=== PATIENT | female | born 1985 | race Caucasian/White ===

== ENCOUNTER 2016-04-28 02:54 | Inpatient (IN) | payer MEDICAID ==
[~2016-04-28] VITALS: Ht 160 cm; Wt 73.2 kg
[2016-04-28] VITALS (28 sets, daily range): BP systolic 97–122; BP diastolic 53–72; PULSE 75–118; TEMP 97.9–98.2
[~2016-04-28 02:54] MED LIST: PRENATAL VITAMI1 TA5 PO
[2016-04-28] MEDS ORDERED: IRON325 MG PO (03:12)
[2016-04-28 04:40] LABS: BASO % 0.3 % (0.0-2.0); EOS # 0.1 (0.0-0.7); EOS % 0.5 % (0-4.0); GRAN # 8.3 (1.4-6.5); GRAN % 72.4 % (42.2-75.2); HEMOGLOBIN 12.1 g/dl (12.5-16.0); LYMPH # 2.4 (1.2-3.4); LYMPH % 20.5 % (20.0-51.0); MEAN CELL VOLUME 86 fl (80.0-100.0); MEAN CORPUSCULAR HEMOGLOBIN 29 pg (27.0-31.0); MEAN CORPUSCULAR HGB CONC 34 g/dl (33.0-37.0); MEAN PLATELET VOLUME 11.1 fl (7.4-10.4); MONO # 0.7 (0.1-0.6); MONO % 5.7 % (1.7-9.3); PLATELET COUNT 193 K/mm3 (130-400); REDCELL DISTRIBUTION WIDTH-CV 14.7 % (11.5-14.5); WHITE BLOOD COUNT 11.5 K/mm3 (4.8-10.8)
[2016-04-28 04:45] LABS: HEMATOCRIT 35.9 % (37.0-47.0)
[2016-04-29 03:00] VITALS: BP 105/58; PULSE 74; TEMP 97.8
[2016-04-29 07:29] VITALS: BP 108/61; PULSE 72; TEMP 98.5
[2016-04-29] MEDS ORDERED: IBU800 M1 PO (08:31)
[2016-04-29 15:40] VITALS: BP 111/60; PULSE 96; TEMP 98.2
== END 2016-04-29 17:30 | disposition home or self-care (01) | DRG 774 ==
LOC: LDRO 02:54 → LDR 04:15 → OB 04:15
PROVIDERS: Obstetrics & Gynecology
PROC: 10E0XZZ Delivery of Products of Conception, External Approach (ICD-10-PCS; principal; 2016-04-28)
DX: O48.0 Post-term pregnancy (principal); O98.312 Other infections with a predominantly sexual mode of transmission complicating pregnancy, second trimester; A56.02 Chlamydial vulvovaginitis; D64.9 Anemia, unspecified; O99.013 Anemia complicating pregnancy, third trimester; Z3A.41 41 weeks gestation of pregnancy; Z37.0 Single live birth
CPT/HCPCS: J2590; J7120

== ENCOUNTER 2017-06-01 10:09 | Inpatient (IN) | payer MEDICAID ==
[~2017-06-01] VITALS: Ht 160 cm; Wt 66.8 kg
[2017-06-01] VITALS (13 sets, daily range): BP systolic 98–119; BP diastolic 55–73; PULSE 74–100; TEMP 97.9–98.9
[~2017-06-01 10:09] MED LIST changes: +IBU800 M1 PO; +IRON325 MG PO
[2017-06-01 10:55] LABS: BASO % 0.3 % (0.0-2.0); EOS % 0.3 % (0-4.0); GRAN # 9.2 (1.4-6.5); GRAN % 78.8 % (42.2-75.2); HEMATOCRIT 39.1 % (37.0-47.0); HEMOGLOBIN 12.9 g/dl (12.5-16.0); LYMPH # 1.7 (1.2-3.4); LYMPH % 14.7 % (20.0-51.0); MEAN CELL VOLUME 90 fl (80.0-100.0); MEAN CORPUSCULAR HEMOGLOBIN 30 pg (27.0-31.0); MEAN CORPUSCULAR HGB CONC 33 g/dl (33.0-37.0); MEAN PLATELET VOLUME 11.4 fl (7.4-10.4); MONO # 0.6 (0.1-0.6); MONO % 5.2 % (1.7-9.3); PLATELET COUNT 169 K/mm3 (130-400); RED BLOOD COUNT 4.34 M/mm3 (4.10-5.30); REDCELL DISTRIBUTION WIDTH-CV 14.3 % (11.5-14.5)
[2017-06-02 01:00] VITALS: BP 100/68; PULSE 78; TEMP 98.1
[2017-06-02 10:00] VITALS: BP 116/66; PULSE 78; TEMP 98.1
[2017-06-02 14:07] VITALS: BP 95/52; PULSE 60; TEMP 98.1
[2017-06-02 20:00] VITALS: BP 104/65; PULSE 80; TEMP 97.3
[2017-06-03 07:21] VITALS: BP 99/71; PULSE 77
[2017-06-03] MEDS ORDERED: IBU800 M1 PO (07:57)
== END 2017-06-03 12:20 | disposition home or self-care (01) | DRG 775 ==
LOC: OB 10:09 → LDR 10:13 → OB 10:13
PROVIDERS: Obstetrics & Gynecology
PROC: 10E0XZZ Delivery of Products of Conception, External Approach (ICD-10-PCS; principal; 2017-06-01)
DX: O48.0 Post-term pregnancy (principal); O99.824 Streptococcus B carrier state complicating childbirth; O69.81X0 Labor and delivery complicated by cord around neck, without compression, not applicable or unspecified; Z3A.41 41 weeks gestation of pregnancy; Z37.0 Single live birth
CPT/HCPCS: J2540; J2590; J7120

== ENCOUNTER 2019-02-24 06:35 | Observation (INO) | payer MEDICAID ==
[~2019-02-24] VITALS: Ht 160 cm; Wt 72.7 kg
[2019-02-24 07:48] LABS: COLLECTION METHOD CLEAN CATCH
[2019-02-24 07:56] LABS: BASO % 0.3 % (0.0-2.0); EOS % 0.2 % (0-4.0); GRAN # 11.7 (1.4-6.5); HEMOGLOBIN 11.2 g/dl (12.5-16.0); LYMPH # 1.2 (1.2-3.4); LYMPH % 8.4 % (20.0-51.0); MEAN CELL VOLUME 94 fl (80.0-100.0); MEAN CORPUSCULAR HEMOGLOBIN 30 pg (27.0-31.0); MEAN CORPUSCULAR HGB CONC 32 g/dl (33.0-37.0); MONO # 0.9 (0.1-0.6); MONO % 6.2 % (1.7-9.3); PLATELET COUNT 216 K/mm3 (130-400); RED BLOOD COUNT 3.72 M/mm3 (4.10-5.30); REDCELL DISTRIBUTION WIDTH-CV 13.3 % (11.5-14.5)
[2019-02-24 07:57] LABS: HEMATOCRIT 34.8 % (37.0-47.0)
[2019-02-24 08:01] LABS: MUCOUS Present /lpf; PH 6 (5-8); SQUAMOUS EPITHELIAL 0-2 /hpf; URINE APPEARANCE Clear; URINE BACTERIA Rare /hpf; URINE BILIRUBIN Negative (NEGATIVE); URINE BLOOD 2+ (NEGATIVE); URINE COLOR Yellow; URINE GLUCOSE Negative (NEGATIVE); URINE KETONE 2+ (NEGATIVE); URINE LEUKOCYTE ESTERASE Negative (NEGATIVE); URINE NITRATE Negative (NEGATIVE); URINE PROTEIN(semi-quant) Negative (NEGATIVE); URINE RBC >50 /hpf; URINE UROBILINOGEN Negative (NEGATIVE)
[2019-02-24 08:06] LABS: ALANINE AMINOTRANSFERASE < 6 U/L (9-52); ALBUMIN 4.1 gm/dL (3.5-5.0); ALKALINE PHOSPHATASE 80 U/L (50-136); ANION GAP 9 mmol/L (7-16); AST,SGOT 14 U/L (15-37); BILIRUBIN,TOTAL 0.4 mg/dL (0.0-1.0); BLOOD UREA NITROGEN 11 mg/dL (7-17); CALCIUM 8.9 mg/dL (8.4-10.2); CARBON DIOXIDE 22 mmol/L (22-30); CHLORIDE 103 mmol/L (98-107); CREATININE, serum 0.83 (0.52-1.25); GLUCOSE 93 mg/dL (74-106); LIPASE 34 U/L (23-300); POTASSIUM 4.1 mmol/L (3.4-5.0); SODIUM 133 mmol/L (137-145); TOTAL PROTEIN 7.8 gm/dL (6.4-8.2)
[2019-02-24 08:17] LABS: C-REACTIVE PROTEIN 15.8 mg/dL (0.0-0.9)
--- NOTE | 2019-02-24 08:25 | NUR ---
This RN to ER for FHR strip on patient. Patient in ER for back pain. G6L5, 30.6wks. Denies or medical complications. Denies tightening/cramping/contractions, vaginal bleeding, or leaking of fluid. Reports good movements. NST obtained. FHR reactive for gestational age. Audible movement. No uterine activity noted per palpation or toco.
--- NOTE | 2019-02-24 08:45 | NUR ---
Plan of care discussed with patient regarding performing SVE per 's order. Patient verbalized understanding. SVE closed/thick/high.
[2019-02-24 09:33] LABS: TRICYCLIC ANTIDEPRESS URINE NEGATIVE
[2019-02-24 11:30] VITALS: BP 106/71; PULSE 102; TEMP 97.5
--- NOTE | 2019-02-24 11:30 | NUR ---
Report from Abhijeet RN to assume care of patient at this time. Patient into Room 222 via wheelchair. Oriented to room and plan of care. Patient reports pain at 10/10, requesting pain medication. Will call for further orders.
[2019-02-24 15:15] VITALS: BP 104/62; PULSE 102; TEMP 98.3
[2019-02-24 19:15] VITALS: BP 104/58; PULSE 102; TEMP 98.7
[2019-02-24 23:55] VITALS: BP 100/62; PULSE 94; TEMP 98.6
[2019-02-25 04:15] VITALS: BP 104/58; PULSE 93
[2019-02-25 07:15] VITALS: BP 108/71; PULSE 100; TEMP 98.1
[2019-02-25] MEDS ORDERED: STOOL SOFTENER100 M2 PO (07:39)
[2019-02-25] MEDS ORDERED: PERCOCET 325 MG1 TA2 PO (07:39)
--- NOTE | 2019-02-25 10:12 | NUR ---
Initial visit; Patient thanked Audio Visual Project Manager for looking in on her and offering God's blessings.
[2019-02-25 11:15] VITALS: BP 112/62; PULSE 98; TEMP 98.2
== END 2019-02-25 14:05 | disposition home or self-care (01) ==
LOC: COL.ER 06:35 → OB 09:47
PROVIDERS: Family Medicine; ADMIT Obstetrics & Gynecology
DX: O99.89 Other specified diseases and conditions complicating pregnancy, childbirth and the puerperium (principal); N13.30 Unspecified hydronephrosis; Z3A.31 31 weeks gestation of pregnancy; R31.29 Other microscopic hematuria
CPT/HCPCS: G0378; J2270; J7030; J7120

== ENCOUNTER 2019-05-07 18:54 | Inpatient (IN) | payer MEDICAID ==
[~2019-05-07] VITALS: Ht 160 cm; Wt 74.5 kg
[~2019-05-07 18:54] MED LIST changes: +PERCOCET 325 MG1 TA2 PO; +STOOL SOFTENER100 M2 PO
[2019-05-07 18:57] VITALS: BP 108/58; PULSE 88; TEMP 998.4
[2019-05-07 19:30] VITALS: BP 108/58; PULSE 88; TEMP 98.4
[2019-05-07] MEDS ORDERED: PRENATAL 191 TAB PO (20:38)
[2019-05-07 22:57] VITALS: BP 108/58; PULSE 88
[2019-05-07 23:30] VITALS: BP 116/68; PULSE 74; TEMP 98.3
[2019-05-07 23:34] LABS: BASO % 0.3 % (0.0-2.0); EOS # 0.1 (0.0-0.7); EOS % 0.7 % (0-4.0); GRAN # 7.5 (1.4-6.5); GRAN % 70.6 % (42.2-75.2); HEMATOCRIT 36.4 % (37.0-47.0); HEMOGLOBIN 11.7 g/dl (12.5-16.0); LYMPH # 2.2 (1.2-3.4); LYMPH % 21.2 % (20.0-51.0); MEAN CELL VOLUME 90 fl (80.0-100.0); MEAN CORPUSCULAR HEMOGLOBIN 29 pg (27.0-31.0); MEAN CORPUSCULAR HGB CONC 32 g/dl (33.0-37.0); MEAN PLATELET VOLUME 11.7 fl (7.4-10.4); MONO # 0.7 (0.1-0.6); MONO % 6.4 % (1.7-9.3); PLATELET COUNT 232 K/mm3 (130-400); RED BLOOD COUNT 4.03 M/mm3 (4.10-5.30); REDCELL DISTRIBUTION WIDTH-CV 13.8 % (11.5-14.5)
[2019-05-08] VITALS (17 sets, daily range): BP systolic 101–124; BP diastolic 53–71; PULSE 64–100; TEMP 97.4–98.6
--- NOTE | 2019-05-08 06:20 | NUR ---
Report from Rachid Curtis RN and care of patient recieved. Patient requesting to be taken off EFM for ambulating, category 1 FHR tracing noted. Patient encouraged to notify RN with increased pain or pressure.
--- NOTE | 2019-05-08 06:47 | NUR ---
0647- Patient back on EFM for monitoring prior to SVE and physician update. Patient reports increased pressure. 0652- SVE by this RN /+1 with BBOWI. Patient repositioned WL and encouraged to notify RN with increased pressure. 0654- Dr. Martinez notified of recent SVE, patient history, and requested at bedside for delivery. Physician in transit. RN remains at bedside. Nursery RN notified. Patient breathing through contractions well.
--- NOTE | 2019-05-08 07:16 | NUR ---
0716- Dr. Martinez at bedside for impending delivery. 0717- Patient requests AROM. AROM by Dr. Martinez for moderate amount of clear fluid, SVE 10/+2. Patient assisted to footplates and encouraged to push when patient feels the urge. 0720- Patient begins pushing with contractions with physician at bedside. 0728- of viable female infant attended by Dr. Martinez. to mother's abdomen, care of infant to Abhinav Aceves RN. Apgars 8/9/9. 0732- Spont. delivery of placenta. Pitocin bolus started at 333 ml/hr/protocol. Perineum intact. Pericare given and ice pack applied. Patient updated on plan of care and safety. Denies need.
[2019-05-09 07:55] VITALS: BP 104/68; PULSE 72; TEMP 97.8
[2019-05-09] MEDS ORDERED: PERCOCET 325 MG1 TA2 PO (08:18)
[2019-05-09] MEDS ORDERED: MOTRIN 600600 MG/TAB PO (08:18)
--- NOTE | 2019-05-09 10:11 | NUR ---
Initial visit; Patient thanked Machine Fixer for offering congratulations and God's blessings for the of her daughter. Machine Fixer thanked mom for choosing [facility].
== END 2019-05-09 15:27 | disposition home or self-care (01) | DRG 807 ==
LOC: LDRO 18:54 → LDR 22:30 → OB 22:30
PROVIDERS: ADMIT Obstetrics & Gynecology
PROC: 10E0XZZ Delivery of Products of Conception, External Approach (ICD-10-PCS; principal; 2019-05-07)
PROC: 10907ZC Drainage of Amniotic Fluid, Therapeutic from Products of Conception, Via Natural or Artificial Opening (ICD-10-PCS; 2019-05-07)
DX: O48.0 Post-term pregnancy (principal); Z37.0 Single live birth; O99.824 Streptococcus B carrier state complicating childbirth; Z3A.41 41 weeks gestation of pregnancy; Z23 Encounter for immunization
CPT/HCPCS: J2540; J2590; J7120

== ENCOUNTER 2022-01-08 09:32 | Inpatient (IN) | payer MEDICAID ==
[~2022-01-08] VITALS: Ht 160 cm; Wt 78.5 kg
[2022-01-08] VITALS (31 sets, daily range): BP systolic 91–134; BP diastolic 50–75; PULSE 58–92; TEMP 97.9–98.6
[~2022-01-08 09:32] MED LIST changes: +MOTRIN 600600 MG/TAB PO; +PRENATAL 191 TAB PO
--- NOTE | 2022-01-08 09:40 | NUR ---
0954 PT AMBULATORY TO UNIT WITH SUPPORT PERSON. PT SENT OVER FROM OFFICE. INFORMED PT ON PLAN OF CARE AND EXPLAINED INDUCTION PROCESS. PT AGREEABLE. PT REPORTS POSITIVE MOVEMENT, CTX EVERY 8-9 MINUTES BUT BARELY FEELS THEM, NO LEAKING OF FLUID. PT COMOFORTABLE AT THIS TIME.
[2022-01-08 10:19] LABS: BASO % 0.2 % (0.0-2.0); EOS # 0.1 K/mm3 (0.0-0.7); EOS % 1.1 % (0.0-4.0); GRAN # 6.1 K/mm3 (1.4-6.5); GRAN % 67.7 % (42.2-75.2); HEMOGLOBIN 11.7 g/dl (12.5-16.0); LYMPH # 2.1 K/mm3 (1.2-3.4); LYMPH % 23.7 % (20.0-51.0); MEAN CELL VOLUME 85 fl (80.0-100.0); MEAN CORPUSCULAR HEMOGLOBIN 28 pg (27-31); MEAN CORPUSCULAR HGB CONC 33 g/dl (33.0-37.0); MEAN PLATELET VOLUME 11.4 fl (7.4-10.4); MONO # 0.6 K/mm3 (0.1-0.6); MONO % 6.7 % (1.7-9.3); PLATELET COUNT 207 K/mm3 (130-400); RED BLOOD COUNT 4.16 M/mm3 (4.10-5.30); REDCELL DISTRIBUTION WIDTH-CV 14.7 % (11.5-14.5)
[2022-01-08 10:20] LABS: HEMATOCRIT 35.5 % (37.0-47.0)
--- NOTE | 2022-01-08 12:30 | NUR ---
1230 DR. HOWELL AT BEDSIDE FOR SVE AND AROM. SVE /-3, AROM COMPLETE AT THIS TIME. LARGE AMOUNT OF CLEAR FLUID NOTED. EFM TRACING CAT 1. WILL CONTINUE TO MONITOR.
--- NOTE | 2022-01-08 16:00 | NUR ---
1600 PT CALLED OUT FEELING INCREASED PRESSURE. THIS RN AT BEDSIDE FOR SVE 9/100/-2. ALVARO MARSHALL, AND DR. HOWELL NOTIFIED AT THIS TIME. ROOM SET UP FOR DELIVERY. 1604 PT SVE COMPLETE/-[address] HOWELL NOTIFIED. 1606 DR. HOWELL ON UNIT FOR DELIVERY. BEGAN PUSHING WITH PT. GOOD MATERNAL EFFORT. EFM TRACING CAT 1. 16[address] PER DR. HOWELL OVER INTACT PERINEUM. PT REQUESTED DELAYED CORD CLAMPING. BABY PLACED ON ABDOMEN AND CARE ASSUMED BY ALVARO MARSHALL. [address] HOWELL. BLEEDING WNL, FUNDUS FIRM AT THIS TIME. NO REPAIRS PERFORMED. MATERNAL VITAL SIGNS WNL. WILL CONTINUE TO MONITOR.
[2022-01-09 03:26] VITALS: BP 99/48; PULSE 64; TEMP 97.9
[2022-01-09 07:15] VITALS: BP 104/48; PULSE 69; TEMP 98
[2022-01-09] MEDS ORDERED: ROXICODONE 55 MG/TAB PO (08:51)
[2022-01-09] MEDS ORDERED: IBU800 M1 PO (08:51)
--- NOTE | 2022-01-09 09:44 | NUR ---
Initial visit attempt; Patient resting, Supervisor Microwave left card offering congratulations and God's blessings for the of her daughter and information regarding the availability of spiritual care at our hospital.
[2022-01-09 11:30] VITALS: BP 96/61; PULSE 66; TEMP 98.8
[2022-01-09 15:25] VITALS: BP 99/49; PULSE 60; TEMP 98.3
--- NOTE | 2022-01-09 18:11 | NUR ---
1800 - DISCHARGE INSTRUCTIONS REVIEWED WITH PT AND , VOICES GOOD UNDERSTANDING BRACELET REMOVED X1 AND VERIFIED WITH MOTHERS 1810 - DISMISSED AMBULATORY WITH AND INFANT
== END 2022-01-09 18:10 | disposition home or self-care (01) | DRG 807 ==
LOC: LDRO 09:32 → LDR 10:00 → OB 10:00
PROVIDERS: ADMIT Student in an Organized Health Care Education/Training Program
PROC: 10E0XZZ Delivery of Products of Conception, External Approach (ICD-10-PCS; principal; 2022-01-08)
PROC: 3E033VJ Introduction of Other Hormone into Peripheral Vein, Percutaneous Approach (ICD-10-PCS; 2022-01-08)
PROC: 10907ZC Drainage of Amniotic Fluid, Therapeutic from Products of Conception, Via Natural or Artificial Opening (ICD-10-PCS; 2022-01-08)
DX: O48.0 Post-term pregnancy (principal); Z37.0 Single live birth; Z3A.41 41 weeks gestation of pregnancy; O99.02 Anemia complicating childbirth; D64.9 Anemia, unspecified; K21.9 Gastro-esophageal reflux disease without esophagitis; O99.62 Diseases of the digestive system complicating childbirth; Z91.19 Patient's noncompliance with other medical treatment and regimen; O76 Abnormality in fetal heart rate and rhythm complicating labor and delivery
CPT/HCPCS: J2590; J7120